=== PATIENT | female | born 1990 | race Caucasian/White ===

== ENCOUNTER 2018-05-20 07:31 | Emergency (ER) | payer BC, OTHER ==
[~2018-05-20] VITALS: Ht 180.3 cm; Wt 134.4 kg
[2018-05-20 07:40] VITALS: BP 153/93
[2018-05-20] MEDS ORDERED: KETOROLAC 30 MG/1 ML ONE (08:00)
[2018-05-20] MEDS ORDERED: LIDODERM 5% PATCH TD ONE (08:00)
[2018-05-20] MEDS ORDERED: KETOROLAC 30 MG/1 ML IM ONE (08:00)
== END 2018-05-20 09:15 | disposition home or self-care (01) ==
LOC: ED 09:09
DX: S39.012A Strain of muscle, fascia and tendon of lower back, initial encounter (principal); X58.XXXA Exposure to other specified factors, initial encounter; Y93.89 Activity, other specified; Y99.8 Other external cause status; Y92.89 Other specified places as the place of occurrence of the external cause
CPT/HCPCS: 96372; 99283; J1885